=== PATIENT | female | born 1995 | race African-American/Black ===

== ENCOUNTER 2016-10-31 14:19 | Emergency (ER) | payer SELFPAY ==
--- NOTE | ~2016-10-31 | CR127 ---
[facility] A Service of [facility] & [facility] RADIOLOGY TEXT RESULTS PATIENT: CHITRA DOE LOCATION: [facility] : [birth year] UNIT #: [id number] AGE: [address]: Tessy Johnson SEX: F ORDER DR: [id number] [facility] [address] [place], [place] [address] [id number] E MR#: [id number] Acc #: [id number] NAME: CHITRA DOE : 1995 SEX: F STUDY DATE/TIME: 10/31/2016 14:00 UNIT: [facility] ROOM: STUDY DESCRIPTION: CR Foot Complete Min 3 View Rt Attending Physician: Tessy Johnson P.A.-C. Ordering Physician: Tessy Johnson P.A.-C. Primary Care Physician: Primary Care Physician No MEDICAL IMAGING REPORT This report is preliminary unless electronic signature is present EXAM Right foot, 3 views, 10/31/2016 1400 hours HISTORY Patient suffered twisting injury and fall 2 days ago, with foot and ankle pain and swelling. COMPARISON None. FINDINGS AP, lateral and oblique views demonstrate no fracture or dislocation. IMPRESSION Negative right foot. Dictated by... Zara Rodriguez M.D. THIS IS AN ELECTRONICALLY VERIFIED REPORT Zara Rodriguez M.D. at 10/31/2016 6:55 PM [email or web address] TD: 10/31/2016 17:46 JOB #: [id number] MEDICAL IMAGING REPORT Page 1 of 1 COPY
--- NOTE | ~2016-10-31 | CR21 ---
[facility] A Service of [facility] & [facility] RADIOLOGY TEXT RESULTS PATIENT: CHITRA DOE LOCATION: [facility] : [birth year] UNIT #: [id number] AGE: [address]: Tessy Johnson SEX: F ORDER DR: [id number] [facility] [address] [place], [place] [address] [id number] E MR#: [id number] Acc #: [id number] NAME: CHITRA DOE : 1995 SEX: F STUDY DATE/TIME: 10/31/2016 UNIT: [facility] ROOM: STUDY DESCRIPTION: CR Ankle Min 3 Views Rt Attending Physician: Tessy Johnson P.A.-C. Ordering Physician: Tessy Johnson P.A.-C. Primary Care Physician: No Primary Care Physician MEDICAL IMAGING REPORT This report is preliminary unless electronic signature is present EXAM Right ankle, 3 views, 10/31/2016, 1359 hours. HISTORY 21-year-old who fell 2 days ago with twisting injury of the foot and ankle. Pain and swelling. COMPARISON STUDIES Foot film, 10/31/2016. FINDINGS AP, lateral, and oblique views demonstrate lateral greater than medial soft tissue swelling with no fracture or dislocation. IMPRESSION There is lateral greater than medial soft tissue swelling, with no underlying fracture or dislocation. Dictated by... Zara Rodriguez M.D. THIS IS AN ELECTRONICALLY VERIFIED REPORT Zara Rodriguez M.D. at 10/31/2016 6:55 PM Kirsten TD: 10/31/2016 17:48 JOB #: [id number] MEDICAL IMAGING REPORT Page 1 of 1 COPY
== END 2016-10-31 14:27 | disposition home or self-care (01) ==
LOC: CFTX 14:19
DX: S93.491A Sprain of other ligament of right ankle, initial encounter (principal); X50.1XXA Overexertion from prolonged static or awkward postures, initial encounter; Y92.009 Unspecified place in unspecified non-institutional (private) residence as the place of occurrence of the external cause
CPT/HCPCS: 73610; 73630; 99283